=== PATIENT | male | born 1990 | race African-American/Black ===

== ENCOUNTER 2021-04-07 14:05 | Emergency (ER) | payer OTHER ==
[~2021-04-07] VITALS: Ht 185.4 cm; Wt 87.7 kg
[2021-04-07] MEDS ORDERED: IV NORMAL SALINE 1,000ML 1,000 ML IV ONE (15:00)
[2021-04-07 15:30] LABS: BASO % 1 % (0-3); EOS # 0.1 x10^3/uL (0.0-0.7); EOS % 2 % (0-3); HEMOGLOBIN 17.9 g/dL (13.0-17.5); LYMPH # 1.6 x10^3/uL (1.0-4.8); LYMPH % 26 % (24-48); MEAN CORPUSCULAR HEMOGLOBIN 32 pg (25-35); MEAN CORPUSCULAR HGB CONC 35 g/dL (31-37); MEAN CORPUSCULAR VOLUME 92 fL (79-100); MONO # 0.7 x10^3/uL (0.0-1.1); MONO % 12 % (0-9); NEUT # 3.6 x10^3uL (1.8-7.7); NEUT % 60 % (31-73); PLATELET COUNT 254 x10^3/uL (140-400); RED BLOOD COUNT 5.63 x10^6/uL (4.30-5.70)
[2021-04-07 15:38] LABS: CALCIUM 9.1 mg/dL (8.5-10.1); CREATININE 1.2 mg/dL (0.7-1.3); GFR 86.6; POTASSIUM 4.1 mmol/L (3.5-5.1)
[2021-04-07 15:44] LABS: ALBUMIN 4.5 g/dL (3.4-5.0); ALBUMIN/GLOBULIN RATIO 1.3 (1.0-1.7); TOTAL BILIRUBIN 1.3 mg/dL (0.2-1.0)
[2021-04-07 16:35] VITALS: BP 112/81
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
== END 2021-04-07 16:44 | disposition home or self-care (01) ==
LOC: ER 14:05
DX: F16.20 Hallucinogen dependence, uncomplicated (principal)
CPT/HCPCS: 36415; 80053; 82550; 85025; 96360; 99283; J7030

== ENCOUNTER 2021-04-12 08:53 | Emergency (ER) | payer OTHER ==
[~2021-04-12] VITALS: Ht 185.4 cm; Wt 87.7 kg
[2021-04-12 09:01] VITALS: BP 165/88
--- NOTE | 2021-04-12 09:16 | RAD ---
Left ankle 3 views. HISTORY: Pain and swelling 3 views were taken of the left ankle. There is either an old ununited fracture or separate ossificati on center at the medial malleolus. There is sesamoids of the medial malleolus. There is no acute frac ture. There is no other acute osseous abnormality. IMPRESSION: 1. Separate ossification center or old ununited fracture at the tip of the medial malleolus. 2. Sesamoids at the medial malleolus. 3. No acute fracture left ankle. Electronically signed by: Naresh Isidro MD (04/12/2021 9:13 AM) [facility]
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
[2021-04-12] MEDS ORDERED: HYDROcodone/APAP 5/325MG 1 TAB TABLET PO ONE (09:30)
== END 2021-04-12 09:46 | disposition home or self-care (01) ==
LOC: ER 08:53
DX: M25.572 Pain in left ankle and joints of left foot (principal); R22.42 Localized swelling, mass and lump, left lower limb
CPT/HCPCS: 73610; 99283